=== PATIENT | male | born 1950 | race Caucasian/White ===

== ENCOUNTER → 2016-11-20 | Day surgery (SDC) | payer MEDICARE, OTHER ==
[~2016-11-20] VITALS: Ht 177.8 cm; Wt 103.0 kg
[~2016-11-20] MED LIST: 0.9% Sodium Chloride 1,000 ML IV SCH; ALLO300T2 PO; ALPR1TAB7 PO; ASPI-973 PO; ATRV10T PO; COLC0.6T55 PO; LISI10TA PO; NPR500T PO; OMEP20CA11 PO; PANT40TA2 PO; PRE20 PO; Sodium Chloride LOK Flush 10 mL Syringe IV PRN; fentaNYL-PF 50 mCg/mL 2 mL Inj IVPUSH PRN
[2016-11-20 08:06] VITALS: BP 120/83; PULSE 50; RESP 14; O2SAT 97
--- NOTE | 2016-11-20 09:15 | PCM.ENDEGD ---
EGD Date of Service: Nov 20, 2016 Physician Bi Shah MD Pre Procedure Diagnosis: Abnormal CT Post Procedure Dx & Findings: Surrounding tissue prominence around the ampulla. Gastritis Procedure Esophagogastroduodenoscopy PROCEDURE IN DETAIL: After proper sedation, Olympus video endoscope was inserted into patient's mouth and esophagus was successfully intubated. Scope introduced esophagus. Esophagus showed normal shiny whitish mucosa consistent with squamous cell component. Z line was at 40 cm from the incisors. There was a small irregularity about 1 cm in length. Rest of the Z line was intact. Biopsy obtained. Scope further advanced to the stomach. Antrum showed some redness atrophy consistent with gastritis. Biopsies obtained.. Cardia fundus body antrum pylorus were all visualized. Retroflexion was done. Stomach was easily inflated and deflatable using air. Scope further advanced to the distal duodenum. Duodenum revealed normal villous structures with normal appearing folds without any mass ulcer erosion. However around the ampulla there was a tissue prominence. It appears the ampulla itself appeared to be normal blood does surrounding bulge about couple of centimeters in diameter. Biopsies obtained. Impression Irregular Z line Surrounding tissue prominence around the ampulla. Gastritis Recommendation Await biopsy Follow up in GI clinic to do further testing to make sure this is not ampullary adenoma. Presedation Assessment Risks and Benefits Informed consent was obtained from the patient after all risks and benefits including but not limited to drug reaction, infection, pain, bleeding, perforation, as well as alternatives were discussed. Patient monitoring Continuous pulse oximetry, cardiac monitoring, blood pressure monitoring, IV access, and oxygen at 2L per nasal cannula. Periprocedural Fentanyl: Fentanyl 200mcg Incrementally Midazolam: Midazolam 10mg Incrementally Complications There were no periprocedural complications identified. Post Procedure Plan Post Procedure Recommendations 1. Restrict activities today. 2. Resume normal activities in the morning. 3. Resume medications. 4. GERD behavioral modification: - Avoid fatty, acidic, spicy, large meals - Do not lie down after meals - Do not eat or drink anything for at least 2 1/2 hours before going to bed at night - Discontinue tobacco and alcohol - Decrease or avoid caffeine - Avoid chocolate and mints - Decrease weight - Avoid aspirin and non steroidal anti-inflammatory agents (NSAID) such as Aleve, Advil, Mobic, Naproxen, Ibuprofen, etc 5. Add proton pump inhibitor. Take 30 minutes before 1st meal of the day. 6. Patient informed of normal post procedure side effects as bloating, drowsiness, blood streaking in the stool 7. If gastric biopsy reveal H.pylori, continue with appropriate treatment 8. If small bowel biopsy reveals celiac, continue with appropriate treatment 9. Please don't hesitate to call me with any questions Bi Shah MD Nov 20, 2016 09:15
--- NOTE | 2016-11-20 09:17 | PCM.ENDCOL ---
Colonoscopy Date of Service: Nov 20, 2016 Physician Bi Shah MD Pre Procedure Diagnosis: Screening procedures for colon polyp Post Procedure Dx & Findings: Diverticuli hemorrhoids Procedure Colonoscopy PROCEDURE IN DETAIL: Prep adequate Withdrawal time 9 minutes After unremarkable rectal examination the Olympus video colonoscope was inserted patient's anal canal and was advanced to cecum. Landmarks were identified including the ileocecal valve and appendiceal orifice. Scope was withdrawn systematically. Visualized colonic mucosa showed healthy shiny mucosa with normal healthy-appearing vasculature. Patient had multiple diverticula especially in the sigmoid colon. However diverticula extended all the way to the right side of the colon. There were small to medium size. Again mostly there were in the sigmoid colon. In the rectum retroflexion was done which showed hemorrhoids. Anal canal was inspected carefully on the way out and hemorrhoids noted. Impression Personal history of colon polyp. Farah Diverticuli Hemorrhoids Recommendation Repeat colonoscopy 5 years Diverticular diet Presedation Assessment Risks and Benefits Informed consent was obtained from the patient after all risks and benefits including but not limited to drug reaction, infection, pain, bleeding, perforation, as well as alternatives were discussed. Patient monitoring Continuous pulse oximetry, cardiac monitoring, blood pressure monitoring, IV access, and oxygen at 2L per nasal cannula. Complications There were no periprocedural complications identified. Post Procedure Plan Post Procedure Recommendations 1. Restrict activities today. 2. Resume normal activities in the morning. 3. Resume medications. 4. Patient informed of normal post procedure side effects as bloating, drowsiness, blood streaking in the stool. 5. average risk CRCS. If colon polyps come back as: -Hyperplastic- can repeat colonoscopy in 10 years -Tubular adenoma- repeat colonoscopy in 5 years -Tubulovillous/villous adenoma- repeat colonoscopy in 3 years -If any dysplasia- return to clinic as soon as possible 6. Please don't hesitate to call me with any questions. Bi Shah MD Nov 20, 2016 09:17
[2016-11-20 09:22] VITALS: BP 140/89; PULSE 55; O2SAT 96
[2016-11-20 09:37] VITALS: BP 127/77; PULSE 56; RESP 12; O2SAT 99
--- NOTE | 2016-11-22 13:10 | PATH ---
SURGICAL PATHOLOGY Attending Physician:Bi Shah M.D. CASE STATUS: Signed Out PATIENT NAME: EDE GRAY PID: [id number] : 1950 DATE COLLECTED:11/20/2016 17:46 SPECIMEN: 1: Duodenum, Biopsy 2: Gastric, Biopsy 3: Esophagus, Biopsy CLINICAL HISTORY: 1). DUODENAL PROMINENCE 2). GASTRIC BIOPSY (RULE OUT H.PYLORI) 3). DISTAL ESOPHAGUS BIOPSY FINAL DIAGNOSIS: 1. Duodenal Prominence, Biopsy: Duodenal mucosa with no diagnostic abnormality. Negative for active inflammation, features of sprue, dysplasia or malignancy. 2. Stomach, Biopsy: Gastric antral mucosa with reactive gastropathy. Negative for Helicobacter organisms by immunohistochemistry. Negative for intestinal metaplasia, dysplasia or malignancy. 3. Distal Esophagus, Biopsy: Columnar mucosa with specialized intestinal metaplasia, consistent with Albrecht's esophagus. Negative for dysplasia or malignancy. ICD10: K22.7 GROSS DESCRIPTION: The specimen is received in three formalin filled containers labeled with the patient's name. 1). The specimen is labeled "duodenal prominence" and consists of a 0.1 x 0.1 x 0.1 CM portion of tissue which is entirely submitted in cassette 1A. 2). The specimen is labeled "gastric" and can assist of 2 portions of tissue which aggregate to 0.2 x 0.2 x 0.2 CM. The specimen is entirely submitted in cassette 2A. 3). The specimen is labeled "distal esophagus" and consists of a 0.1 x 0.1 x 0.1 CM portion of tissue which is entirely submitted in cassettes 3A. 11/20/2016DC MICRO DESCRIPTION: Part 2: An immunohistochemical stain was performed to evaluate for Helicobacter organisms and is negative. A control stain showed appropriate reactivity. * This test was developed and its performance characteristics determined by [facility]. It has not been cleared or approved by the U.S. Food and Drug Administration. The FDA has determined that such clearance or approval is not necessary. This test is used for clinical purposes. It should not be regarded as investigational or for research. ICD-9 CODES: CPT CODES: 1: 81154 2: 35353, 21060 3: 84908 Electronically Signed Out Vince Bob MD, Ph.D. [facility] [address], [place] [address] Technical component performed at [facility], [facility] [address], [place], [address]
== END | disposition home or self-care (01) ==
LOC: END 00:33
PROVIDERS: ATTEND Internal Medicine
DX: Z12.11 Encounter for screening for malignant neoplasm of colon (principal); K57.30 Diverticulosis of large intestine without perforation or abscess without bleeding; K64.8 Other hemorrhoids; Z86.010 Personal history of colon polyps; K22.70 Barrett's esophagus without dysplasia; K29.70 Gastritis, unspecified, without bleeding; K31.9 Disease of stomach and duodenum, unspecified; E78.00 Pure hypercholesterolemia, unspecified; F32.9 Major depressive disorder, single episode, unspecified; F41.9 Anxiety disorder, unspecified
CPT/HCPCS: 43239; 88305; 88342; 99153; G0105; G0500; J2250; J3010; J7030